=== PATIENT | male | born 1945 | race Caucasian/White ===

== ENCOUNTER 2018-11-29 10:46 | Emergency (ER) | payer MEDICARE ==
[~2018-11-29] VITALS: Ht 185.4 cm; Wt 138.9 kg
[2018-11-29] MEDS ORDERED: SYNT112T2 PO (11:26)
[2018-11-29] MEDS ORDERED: BAYECHW PO (11:26)
[2018-11-29] MEDS ORDERED: BISO5TAB5 PO (11:26)
[2018-11-29] MEDS ORDERED: ATOR1TAB21 PO (11:26)
[2018-11-29] MEDS ORDERED: LISI10TA2 PO (11:26)
[2018-11-29] MEDS ORDERED: TERB250T12 PO (11:26)
[2018-11-29] MEDS ORDERED: FURO40TA2 PO (11:26)
[2018-11-29] MEDS ORDERED: PRESCAP PO (11:26)
[2018-11-29] MEDS ORDERED: MAGN1CAP PO (11:26)
[2018-11-29 13:03] VITALS: BP 152/72
--- NOTE | 2018-11-29 13:19 | REP ---
LEFT KNEE, FIVE VIEWS: Five views of the left knee performed. There is no acute fracture or dislocation. There is mild diffuse joint space narrowing. Superior and inferior patellar spurring is noted. There is probably a very small joint effusion. Vascular calcifications are seen posteriorly. IMPRESSION: Degenerative changes without fracture or dislocation. Electronically Signed by Maxx Avery MD 11/30/2018 09:22 A
== END 2018-11-29 13:05 | disposition home or self-care (01) ==
LOC: M ED 10:46
DX: M25.562 Pain in left knee (principal)

== ENCOUNTER 2019-01-04 11:38 | Emergency (ER) | payer MEDICARE ==
[~2019-01-04] VITALS: Ht 182.9 cm; Wt 138.6 kg
[~2019-01-04 11:38] MED LIST: ATOR1TAB21 PO; BAYECHW PO; BISO5TAB14 PO; FURO40TA2 PO; LISI10TA15 PO; MAGN1CAP PO; PRESCAP PO; SYNT112T2 PO; TERB250T12 PO
--- NOTE | 2019-01-04 12:41 | REP ---
Clinical: Right lower extremity pain and swelling . Technique: Avery scale and color Doppler evaluation using linear high frequency transducer. Findings: Ultrasound examination of the right lower extremity deep venous structures from the common femoral vein to the popliteal vein demonstrates normal compressibility flow and wave patterns in response to respiration and augmentation. There is no evidence for deep venous thrombosis. Impression: No evidence for deep venous thrombosis. Electronically Signed by Paco Arcos MD 01/04/2019 12:33 P
[2019-01-04] MEDS ORDERED: hydroCHLOROthiazide 12.5 MG CAPSULE PO ONE (13:15)
[2019-01-04] MEDS ORDERED: lisinopriL 10 MG TAB PO ONE (13:15)
[2019-01-04] MEDS ORDERED: FUROSEMIDE 40 MG TAB PO ONE (13:15)
[2019-01-04 13:22] VITALS: BP 184/84
[2019-01-04 13:34] LABS: BASO % 0.6 % (0.0-1.0); EOS # 0.2 10^3/uL (0.0-0.50); EOS % 2.2 % (0.0-3.0); HEMATOCRIT 43.9 % (42.0-52.0); HEMOGLOBIN 14.3 g/dl (13.5-17.5); LYMPH # 1.5 10^3/uL (1.5-4.5); LYMPH % 21.8 % (24.0-44.0); MEAN CORPUSCULAR HEMOGLOBIN 30.6 pg (27.0-33.0); MEAN CORPUSCULAR HGB CONC 32.6 g/dl (32.0-36.5); MEAN CORPUSCULAR VOLUME 93.8 fl (80.0-96.0); MONO # 0.6 10^3/uL (0.0-0.8); MONO % 8.6 % (0.0-5.0); NEUTROPHILS # 4.6 10^3/uL (1.8-7.7); NEUTROPHILS % 66.5 % (36.0-66.0); PLATELET COUNT, AUTOMATED 206 10^3/uL (150-450); RED BLOOD COUNT 4.68 10^6/uL (4.30-6.10)
--- NOTE | 2019-01-04 13:41 | REP ---
Clinical: Chest and abdominal pain . Comparison: None . Technique: PA and lateral. Findings: Cardiomegaly is appreciated. Evidence of prior sternotomy noted. The lung edmondson are clear and without acute consolidation, effusion, or pneumothorax. The skeletal structures are intact and normal. Impression: Cardiomegaly. No focal consolidation or effusion. Electronically Signed by Paco Arcos MD 01/04/2019 01:33 P
[2019-01-04 14:00] LABS: BLOOD UREA NITROGEN 17 MG/DL (7-18); CALCIUM LEVEL 8.9 MG/DL (8.8-10.2); CARBON DIOXIDE LEVEL 31 MEQ/L (21-32); CHLORIDE LEVEL 105 MEQ/L (98-107); CK-MB VALUE MASS 2.1 NG/ML (<3.6); CPK CREATINE PHOSPHOKINASE 132 U/L (39-308); CREATININE FOR GFR 1.02 MG/DL (0.70-1.30); GLOMERULAR FILTRATION RATE > 60.0 (>42); GLUCOSE, FASTING 138 MG/DL (70-100); MB/CK RELATIVE INDEX 1.59 (< OR =4); NT-PRO BNP 420 PG/ML (<125); POTASSIUM SERUM 4.9 MEQ/L (3.5-5.1); SODIUM LEVEL 140 MEQ/L (136-145); TROPONIN I < 0.02 NG/ML (< 0.10)
[2019-01-04] MEDS ORDERED: ISOVUE-370 76% 100ML VIAL (Q9967) As Ordered ONE (14:25)
[2019-01-04] MEDS ORDERED: NS 1,000 ML IV ONE (14:30)
[2019-01-04 15:15] VITALS: BP 198/93
--- NOTE | 2019-01-04 15:57 | REP ---
Clinical: Lower extremity swelling and elevated D-dimer levels. Technique: Axial contrast enhanced images from the thoracic inlet to the upper abdomen using 100 ml Isovue 370 intravenous contrast material with coronal and sagittal re-formations. Findings: Satisfactory enhancement of the pulmonary vasculature is achieved and no first or second order filling defects are identified to suggest pulmonary embolus. Subtle emboli to the distal branches of the right upper lobe cannot be excluded although these irregularities may be secondary to subtle motion artifact rather than true emboli. Thoracic aorta is normal caliber without aneurysm or dissection. Atherosclerotic changes to the thoracic aorta and coronary arteries noted. Subtle cardiomegaly suggested. No pericardial effusion. Bilateral lung edmondson are well aerated and clear without acute pulmonary parenchymal consolidation or atelectasis. No nodule or mass lesion. No pleural effusion/reaction. No pneumothorax. No adenopathy. Impression: 1. No pulmonary emboli to the first or second order pulmonary arteries. Subtle irregularities involving the more distal branches of the right upper lobe pulmonary arteries may represent artifact, but small emboli cannot definitively be excluded. Clinical observation may be warranted. 2. Atherosclerotic changes and cardiomegaly. 3. No acute consolidation, or effusion. Electronically Signed by Paco Arcos MD 01/04/2019 03:49 P
== END 2019-01-04 16:31 | disposition home or self-care (01) ==
LOC: M ED 11:38
DX: R60.0 Localized edema (principal); I11.9 Hypertensive heart disease without heart failure; E03.9 Hypothyroidism, unspecified; Z79.82 Long term (current) use of aspirin; Z79.899 Other long term (current) drug therapy; Z86.79 Personal history of other diseases of the circulatory system; Z95.1 Presence of aortocoronary bypass graft
CPT/HCPCS: 71046; 71275; 80048; 81001; 82550; 82553; 83880; 84484; 85025; 85379; 93971; 99284; Q9967

== ENCOUNTER → 2019-02-15 | Outpatient (REF) | payer MEDICARE ==
[~2019-02-15] MED LIST changes: -BISO5TAB14 PO; +BISO5TAB9 PO
[2019-02-15 17:35] LABS: ALBUMIN 3.9 GM/DL (3.2-5.2); ALT/SGPT 38 U/L (12-78); BILIRUBIN,TOTAL 0.5 MG/DL (0.2-1.0); BLOOD UREA NITROGEN 23 MG/DL (7-18); CALCIUM LEVEL 8.6 MG/DL (8.8-10.2); CARBON DIOXIDE LEVEL 32 MEQ/L (21-32); CHLORIDE LEVEL 104 MEQ/L (98-107); CREATININE FOR GFR 0.99 MG/DL (0.70-1.30); GLOMERULAR FILTRATION RATE > 60.0 (>42); GLUCOSE, FASTING 92 MG/DL (70-100); NT-PRO BNP 377 PG/ML (<125); POTASSIUM SERUM 4.5 MEQ/L (3.5-5.1); SODIUM LEVEL 141 MEQ/L (136-145); TOTAL PROTEIN 6.8 GM/DL (6.4-8.2)
== END ==
LOC: M SFHCPLAZ 15:46
PROVIDERS: ATTEND Physician Assistant Medical
DX: E66.01 Morbid (severe) obesity due to excess calories (principal); I50.21 Acute systolic (congestive) heart failure

== ENCOUNTER → 2019-02-22 | Outpatient (CLI) | payer MEDICARE ==
[~2019-02-22] MED LIST changes: +BISO5TAB5 PO; -BISO5TAB9 PO
--- NOTE | 2019-02-22 22:42 | ECHO ---
DATE OF PROCEDURE: 02/22/2019 Date of : 1945 Age 73 REFERRING PHYSICIAN: [facility] PATIENT LOCATION: Outpatient. REASON FOR EXAM: Heart failure. 2D MEASUREMENTS IVS: 1.3 cm LV: 4.5 cm LVPW: 1.3 cm LA: 4.5 cm Aorta: 3.7 cm IVC: 1.1 cm DOPPLER MEASUREMENTS: Peak velocity across the aortic valve: 1.3 m/s Peak velocity across the LVOT: 0.72 m/s Mitral E: 0.49, Mitral A: 0.86 with a ratio of 0.6. 2D COMMENTS: 1. Normal left ventricular size with mildly increased left ventricular wall thickness and the low normal global left ventricular systolic function. The estimated left ventricular systolic ejection fraction is about 55%. 2. Mildly enlarged left atrium. The right atrium and the right ventricle also appeared to be mildly enlarged in limited views. 3. The atrial septum appeared to be normal without evidence of defect or shunt. 4. Borderline enlarged aortic root. 5. A small pericardial effusion was noted, no evidence of cardiac tamponade. 6. Mildly calcified aortic valve with normal leaflet excursion. Normal mitral valve, tricuspid valve. The pulmonic valve and proximal pulmonary artery branches were not well visualized. 7. The inferior vena cava was normal in size, central venous pressure is probably normal. DOPPLER: No significant valvular abnormalities detected. Abnormal relaxation pattern was noted across the mitral valve leaflets as well as the mitral valve annulus consistent with features of grade 1 left ventricular diastolic dysfunction. IMPRESSION 1. Low normal global left ventricular systolic function with mild concentric left ventricular hypertrophy. There are some features of left ventricular diastolic dysfunction, abnormal relaxation. 2. Aortic valve sclerosis without stenosis or aortic regurgitation. 3. A small pericardial effusion was noted, no evidence of cardiac tamponade. 4. The right atrium and the right ventricle appeared to be mildly enlarged in limited views. The right ventricular systolic function could not be assessed, not well visualized. 5. The study was technically limited due to poor acoustic window secondary to body habitus. MTDD
== END ==
LOC: M CARPUL 11:02
PROVIDERS: ATTEND Physician Assistant Medical
DX: I50.21 Acute systolic (congestive) heart failure (principal)

== ENCOUNTER → 2019-03-29 | Outpatient (REF) | payer MEDICARE ==
[~2019-03-29] MED LIST changes: -BISO5TAB5 PO; +BISO5TAB9 PO
[2019-03-29 12:39] LABS: ALBUMIN 4.1 GM/DL (3.2-5.2); ALT/SGPT 43 U/L (12-78); BILIRUBIN,TOTAL 0.6 MG/DL (0.2-1.0); BLOOD UREA NITROGEN 17 MG/DL (7-18); CARBON DIOXIDE LEVEL 29 MEQ/L (21-32); CHLORIDE LEVEL 103 MEQ/L (98-107); CREATININE FOR GFR 0.99 MG/DL (0.70-1.30); GLOMERULAR FILTRATION RATE > 60.0 (>42); GLUCOSE, FASTING 130 MG/DL (70-100); NT-PRO BNP 500 PG/ML (<125); POTASSIUM SERUM 4.3 MEQ/L (3.5-5.1); SODIUM LEVEL 139 MEQ/L (136-145); TOTAL PROTEIN 6.8 GM/DL (6.4-8.2)
== END ==
LOC: M SFHCPLAZ 09:44
PROVIDERS: ATTEND Physician Assistant Medical
DX: I50.21 Acute systolic (congestive) heart failure (principal); E78.00 Pure hypercholesterolemia, unspecified
CPT/HCPCS: 36415; 80053; 83880; G0463

== ENCOUNTER → 2020-01-10 | Outpatient (CLI) | payer MEDICARE ==
[~2020-01-10] MED LIST changes: +BISO5TAB14 PO; -BISO5TAB9 PO
== END ==
LOC: M PLALAB 08:27
DX: N40.1 Benign prostatic hyperplasia with lower urinary tract symptoms (principal)

== ENCOUNTER → 2020-01-10 | Outpatient (CLI) | payer MEDICARE ==
[2020-01-10 11:42] LABS: ALT/SGPT 36 U/L (12-78); BILIRUBIN,TOTAL 0.7 MG/DL (0.2-1.0); BLOOD UREA NITROGEN 29 MG/DL (7-18); C REACTIVE PROTEIN QUANTITATIV 1.16 MG/DL (0.00-0.30); CALCIUM LEVEL 8.9 MG/DL (8.8-10.2); CARBON DIOXIDE LEVEL 31 MEQ/L (21-32); CHLORIDE LEVEL 101 MEQ/L (98-107); CHOLESTEROL LEVEL 143 MG/DL (<200); CHOLESTEROL RISK RATIO 3.575 (<5); CREATININE FOR GFR 1.09 MG/DL (0.70-1.30); FERRITIN 151 NG/ML (26-388); FREE T4 1.01 NG/DL (0.76-1.46); GLOMERULAR FILTRATION RATE > 60.0 (>42); GLUCOSE, FASTING 120 MG/DL (70-100); HDL CHOLESTEROL 40 MG/DL (>40); IRON (FE) 86 UG/DL (65-175); LDL CHOLESTEROL 62 MG/DL (<100); NON-HDL-C 103 MG/DL; PERCENT SATURATION 30.9 % (19.7-50.0); POTASSIUM SERUM 4.5 MEQ/L (3.5-5.1); SODIUM LEVEL 139 MEQ/L (136-145); TOTAL IRON BINDING CAPACITY 278 UG/DL (250-450); TOTAL PROTEIN 7.1 GM/DL (6.4-8.2); TRIGLYCERIDES LEVEL 203 MG/DL (<150)
[2020-01-10 11:44] LABS: PTH INTACT 51.3 PG/ML (18.5-88.0); TOTAL 25(OH) VITAMIN D 19.2 NG/ML (30.0-100.0); VITAMIN B12 LEVEL 1010 PG/ML (247-911)
== END ==
LOC: M PLALAB 08:31
DX: Z01.818 Encounter for other preprocedural examination (principal); R53.83 Other fatigue; Z79.899 Other long term (current) drug therapy

== ENCOUNTER → 2020-03-06 | Outpatient (CLI) | payer MEDICARE ==
[~2020-03-06] MED LIST changes: +D31000TA2 PO; +LISI10TA4 PO
== END ==
LOC: M LABSMTC 11:44
PROVIDERS: ATTEND Anesthesiology
DX: Z01.812 Encounter for preprocedural laboratory examination (principal); Z11.59 Encounter for screening for other viral diseases
CPT/HCPCS: C9803; U0003

== ENCOUNTER 2020-03-11 12:40 | Day surgery (SDC) | payer MEDICARE ==
[~2020-03-11] VITALS: Ht 180.3 cm; Wt 135.2 kg
[~2020-03-11 12:40] MED LIST changes: +LIDOCAINE 2% 100MG/5ML SDV (FOR ANES.) As Ordered ONE; +propofoL 200 MG/20 ML VIAL As Ordered ONE
[2020-03-11] MEDS ORDERED: NS 1,000 ML IV ONE (13:15)
[2020-03-11] MEDS ORDERED: fentaNYL 100 MCG/2 ML INJECTION (J3010) As Ordered ONE (14:28)
[2020-03-11 15:18] VITALS: BP 168/72
--- NOTE | 2020-03-20 11:37 | ROOR ---
Patient Name: Warren Harkins Procedure Date: 03/11/2020 11:13 AM Date of : 1945 Age: 74 Room: [facility] Gender: Male Note Status: Finalized Procedure: Total Colonoscopy to Cecum Indications: Screening for colorectal malignant neoplasm Providers: Solomon Foster MD Referring MD: Nathalia DALLAS Requesting Provider: Medicines: Monitored Anesthesia Care Complications: No immediate complications. Procedure: Pre-Anesthesia Assessment: - The heart rate, respiratory rate, oxygen saturations, blood pressure, adequacy of pulmonary ventilation, and response to care were monitored throughout the procedure. The Colonoscope was introduced through the anus and advanced to the cecum, identified by appendiceal orifice and ileocecal valve. The colonoscopy was performed without difficulty. The patient tolerated the procedure well. The quality of the bowel preparation was good. Findings: The perianal and digital rectal examinations were normal. Non-bleeding internal hemorrhoids were found during retroflexion. The hemorrhoids were small and Grade I (internal hemorrhoids that do not prolapse). Scattered small-mouthed diverticula were found in the recto-sigmoid colon, sigmoid colon and descending colon. The exam was otherwise without abnormality on direct and retroflexion views. Impression: - Non-bleeding internal hemorrhoids. - Diverticulosis in the recto-sigmoid colon, in the sigmoid colon and in the descending colon. - The examination was otherwise normal on direct and retroflexion views. - No specimens collected. - The exam was otherwise normal to the cecum. Recommendation: - Patient has a contact number available for emergencies. The signs and symptoms of potential delayed complications were discussed with the patient. Return to normal activities tomorrow. Written discharge instructions were provided to the patient. - High fiber diet. - Discharge patient to home. - Continue present medications. - Repeat colonoscopy is not recommended due to current age (66 years or older) for screening purposes. - Return to referring physician. - The findings and recommendations were discussed with the patient. Solomon Foster MD Solomon Foster MD 03/11/2020 2:39:58 PM Electronically signed by Solomon Foster MD Number of Addenda: 0 Note Initiated On: 03/11/2020 11:13 AM Estimated Blood Loss: Estimated blood loss: none.
--- NOTE | 2020-03-20 11:37 | ROOR ---
Patient Name: Warren Harkins Procedure Date: 03/11/2020 11:31 AM Date of : 1945 Age: 74 Room: [facility] Gender: Male Note Status: Finalized Procedure: Upper Endoscopy + Biopsies Indications: Preoperative assessment for bariatric surgery to treat morbid obesity Providers: Solomon Foster MD Referring MD: Nathalia DALLAS Requesting Provider: Medicines: Monitored Anesthesia Care Complications: No immediate complications. Procedure: Pre-Anesthesia Assessment: - The heart rate, respiratory rate, oxygen saturations, blood pressure, adequacy of pulmonary ventilation, and response to care were monitored throughout the procedure. The Endoscope was introduced through the mouth, and advanced to the second part of duodenum. The upper GI endoscopy was accomplished without difficulty. The patient tolerated the procedure well. Findings: The Z-line was irregular and was found 40 cm from the incisors. Multiple biopsies were obtained with cold forceps for evaluation to rule out Polanco's Esophagus randomly at the gastroesophageal junction. Multiple localized, diminutive non-bleeding erosions were found in the gastric antrum. There were no stigmata of recent bleeding. Biopsies were taken with a cold forceps for Helicobacter pylori testing. The exam of the duodenum was otherwise normal. Impression: - Z-line irregular, 40 cm from the incisors. - Non-bleeding erosive gastropathy. Biopsied. - Multiple biopsies were obtained at the gastroesophageal junction. - The examination was otherwise normal. Recommendation: - Patient has a contact number available for emergencies. The signs and symptoms of potential delayed complications were discussed with the patient. Return to normal activities tomorrow. Written discharge instructions were provided to the patient. - High fiber diet. - Discharge patient to home. - Follow an antireflux regimen. - Continue present medications. - Await pathology results. - Telephone GI clinic for pathology results in 1 week. - Return to referring physician. - The findings and recommendations were discussed with the patient. Solomon Foster MD Solomon Foster MD 03/11/2020 2:21:38 PM Number of Addenda: 0 Note Initiated On: 03/11/2020 11:31 AM Estimated Blood Loss: Estimated blood loss: none.
== END 2020-03-11 15:21 | disposition home or self-care (01) ==
LOC: M OPP 12:40
PROVIDERS: ATTEND Internal Medicine Gastroenterology
DX: Z01.818 Encounter for other preprocedural examination (principal); Z12.11 Encounter for screening for malignant neoplasm of colon; K64.0 First degree hemorrhoids; K57.30 Diverticulosis of large intestine without perforation or abscess without bleeding; K22.8 Other specified diseases of esophagus; K31.89 Other diseases of stomach and duodenum; E66.01 Morbid (severe) obesity due to excess calories; I11.0 Hypertensive heart disease with heart failure; I50.9 Heart failure, unspecified; Z79.82 Long term (current) use of aspirin; Z79.899 Other long term (current) drug therapy; Z85.51 Personal history of malignant neoplasm of bladder
CPT/HCPCS: 43239; 88305; G0121; J3010

== ENCOUNTER → 2020-12-11 | Outpatient (CLI) | payer MEDICARE ==
[~2020-12-11] MED LIST changes: -LIDOCAINE 2% 100MG/5ML SDV (FOR ANES.) As Ordered ONE; +LISI10TA22 PO; -LISI10TA4 PO; -propofoL 200 MG/20 ML VIAL As Ordered ONE
[2020-12-11 11:08] LABS: HEMATOCRIT 42.5 % (42.0-52.0); HEMOGLOBIN 13.3 g/dl (13.5-17.5); MEAN CORPUSCULAR HEMOGLOBIN 28.2 pg (27.0-33.0); MEAN CORPUSCULAR HGB CONC 31.3 g/dl (32.0-36.5); MEAN CORPUSCULAR VOLUME 90.2 fl (80.0-96.0); PLATELET COUNT, AUTOMATED 216 10^3/uL (150-450); RED BLOOD COUNT 4.71 10^6/uL (4.30-6.10); WHITE BLOOD COUNT 7.2 10^3/uL (4.0-10.0)
[2020-12-11 11:32] LABS: HEMOGLOBIN A1c 5.3 %
[2020-12-11 11:38] LABS: ALBUMIN 3.6 GM/DL (3.2-5.2); ALT/SGPT 21 U/L (12-78); BILIRUBIN,TOTAL 0.7 MG/DL (0.2-1.0); BLOOD UREA NITROGEN 27 MG/DL (7-18); C REACTIVE PROTEIN QUANTITATIV 0.83 MG/DL (0.00-0.30); CALCIUM LEVEL 8.9 MG/DL (8.8-10.2); CARBON DIOXIDE LEVEL 34 MEQ/L (21-32); CHLORIDE LEVEL 101 MEQ/L (98-107); CHOLESTEROL LEVEL 138 MG/DL (<200); CREATININE FOR GFR 0.99 MG/DL (0.70-1.30); FERRITIN 157 NG/ML (26-388); GLOMERULAR FILTRATION RATE > 60.0 (>42); GLUCOSE, FASTING 94 MG/DL (70-100); HDL CHOLESTEROL 50 MG/DL (>40); IRON (FE) 79 UG/DL (65-175); LDL CHOLESTEROL 69 MG/DL (<100); NON-HDL-C 88 MG/DL; PERCENT SATURATION 30.6 % (19.7-50.0); POTASSIUM SERUM 4.1 MEQ/L (3.5-5.1); SODIUM LEVEL 140 MEQ/L (136-145); TOTAL IRON BINDING CAPACITY 258 UG/DL (250-450); TOTAL PROTEIN 6.8 GM/DL (6.4-8.2); TRIGLYCERIDES LEVEL 93 MG/DL (<150)
[2020-12-11 11:42] LABS: PTH INTACT 42.7 PG/ML (18.5-88.0); TOTAL 25(OH) VITAMIN D 103.6 NG/ML (30.0-100.0)
[2020-12-11 11:43] LABS: VITAMIN B12 LEVEL 992 PG/ML
[2020-12-11 13:11] LABS: FOLATE > 24.0 NG/ML
== END ==
LOC: M PLALAB 08:34
DX: K91.2 Postsurgical malabsorption, not elsewhere classified (principal); E78.5 Hyperlipidemia, unspecified; R53.83 Other fatigue; Z79.899 Other long term (current) drug therapy; Z98.84 Bariatric surgery status

== ENCOUNTER → 2020-12-11 | Outpatient (REF) | payer MEDICARE ==
[2020-12-11 11:09] LABS: BASO # 0.1 10^3/uL (0.0-0.2); BASO % 0.8 % (0.0-1.0); EOS # 0.2 10^3/uL (0.0-0.5); EOS % 2.9 % (0.0-3.0); HEMATOCRIT 41.6 % (42.0-52.0); HEMOGLOBIN 13.4 g/dl (13.5-17.5); LYMPH # 1.9 10^3/uL (1.5-5.0); LYMPH % 26.3 % (24.0-44.0); MEAN CORPUSCULAR HEMOGLOBIN 29.3 pg (27.0-33.0); MEAN CORPUSCULAR HGB CONC 32.2 g/dl (32.0-36.5); MONO # 0.6 10^3/uL (0.0-0.8); MONO % 7.8 % (2.0-8.0); NEUTROPHILS # 4.5 10^3/uL (1.5-8.5); NEUTROPHILS % 61.9 % (36.0-66.0); PLATELET COUNT, AUTOMATED 229 10^3/uL (150-450); RED BLOOD COUNT 4.57 10^6/uL (4.30-6.10); WHITE BLOOD COUNT 7.3 10^3/uL (4.0-10.0)
[2020-12-11 11:33] LABS: HEMOGLOBIN A1c 5.3 %
[2020-12-11 11:45] LABS: ALBUMIN 3.7 GM/DL (3.2-5.2); ALT/SGPT 20 U/L (12-78); BILIRUBIN,TOTAL 0.7 MG/DL (0.2-1.0); BLOOD UREA NITROGEN 26 MG/DL (7-18); CALCIUM LEVEL 9.1 MG/DL (8.8-10.2); CARBON DIOXIDE LEVEL 35 MEQ/L (21-32); CHLORIDE LEVEL 101 MEQ/L (98-107); CHOLESTEROL LEVEL 144 MG/DL (<200); CHOLESTEROL RISK RATIO 2.823 (<5); CREATININE FOR GFR 0.96 MG/DL (0.70-1.30); FREE T4 1.06 NG/DL (0.76-1.46); GLOMERULAR FILTRATION RATE > 60.0 (>42); GLUCOSE, FASTING 97 MG/DL (70-100); HDL CHOLESTEROL 51 MG/DL (>40); LDL CHOLESTEROL 74 MG/DL (<100); NON-HDL-C 93 MG/DL; NT-PRO BNP 477 PG/ML (<450); POTASSIUM SERUM 4.1 MEQ/L (3.5-5.1); SODIUM LEVEL 139 MEQ/L (136-145); TOTAL PROTEIN 6.9 GM/DL (6.4-8.2); TRIGLYCERIDES LEVEL 94 MG/DL (<150)
== END ==
LOC: M SFHCPLAZ 08:33
PROVIDERS: ATTEND Physician Assistant Medical
DX: I50.21 Acute systolic (congestive) heart failure (principal); I11.0 Hypertensive heart disease with heart failure; R73.01 Impaired fasting glucose; E03.9 Hypothyroidism, unspecified; E78.00 Pure hypercholesterolemia, unspecified

== ENCOUNTER → 2021-10-27 | Outpatient (REF) | payer MEDICARE ==
[~2021-10-27] MED LIST changes: -D31000TA2 PO; -LISI10TA15 PO; +LISI10TA24 PO; -TERB250T12 PO; +TERB250T91 PO; +VITA100093 PO
== END ==
LOC: M LAB REF 15:37
PROVIDERS: ATTEND Physician Assistant
DX: L02.213 Cutaneous abscess of chest wall (principal)

== ENCOUNTER 2022-04-11 12:22 | Inpatient (IN) | payer MEDICARE ==
[~2022-04-11] VITALS: Ht 180.3 cm; Wt 116.9 kg
[2022-04-11 13:38] LABS: HEMATOCRIT 43.3 % (42.0-52.0); MEAN CORPUSCULAR HGB CONC 32.3 g/dl (32.0-36.5); MEAN CORPUSCULAR VOLUME 95.8 fl (80.0-96.0); PLATELET COUNT, AUTOMATED 261 10^3/uL (150-450); RED BLOOD COUNT 4.52 10^6/uL (4.30-6.10); WHITE BLOOD COUNT 17.2 10^3/uL (4.0-10.0)
[2022-04-11 13:57] LABS: ATYPICAL LYMPH 1 % (0-5); EOSINOPHILS 1 % (0-3); LYMPHOCYTES 9 % (16-44); MONOCYTES 14 % (0-5); NEUTROPHILS 60 % (28-66)
[2022-04-11 13:58] LABS: PLATELET ESTIMATE NORMAL (NORMAL)
[2022-04-11 13:59] LABS: POLYCHROMASIA 1+
[2022-04-11 14:00] LABS: ERYTHROCYTE SEDIMENTATION RATE 82 mm/hr (0-20)
[2022-04-11 14:34] LABS: BILIRUBIN,DIRECT 0.3 MG/DL (0.0-0.2); BILIRUBIN,TOTAL 0.7 MG/DL (0.2-1.0); C REACTIVE PROTEIN QUANTITATIV 45.1 MG/DL (0.00-0.30); CALCIUM LEVEL 8.8 MG/DL (8.8-10.2); CREATININE FOR GFR 1.74 MG/DL (0.70-1.30); GLOMERULAR FILTRATION RATE 40.7 (>42); POTASSIUM SERUM 4.3 MEQ/L (3.5-5.1); TOTAL PROTEIN 6.8 GM/DL (6.4-8.2)
[2022-04-11] MEDS ORDERED: VANCOMYCIN HCL 2,000 MG in D5W 500 ML IV ONE (14:40)
[2022-04-11] MEDS ORDERED: VANCOMYCIN HCL 1,000 MG, VIAL MATE ADAPTER 1 EACH in NS 250 ML IV ONE ×6 (14:45)
[2022-04-11] MEDS ORDERED: MAGN400C2 PO (15:12)
[2022-04-11] MEDS ORDERED: BARI1CAP PO (15:12)
[2022-04-11] MEDS ORDERED: ASPI-161 PO (15:12)
[2022-04-11] MEDS ORDERED: HOME MED LIST COMPLETE! XX SCH (15:15)
[2022-04-11] MEDS ORDERED: NS 3,410 ML in IV 1 EA IV ONE (17:00)
[2022-04-11 20:30] VITALS: BP 98/56
[2022-04-11] MEDS: ASPIRIN 81MG ENTERIC TABLET PO SCH (21:55)
[2022-04-11] MEDS: OCUVITE 1 TAB PO SCH (21:55)
[2022-04-11] MEDS: ATORVASTATIN 20 MG TAB PO SCH (21:55)
[2022-04-11] MEDS: NS 1,000 ML IV SCH (21:56)
[2022-04-11] MEDS: HEPARIN SOD (PORCINE) 5000UNITS/ML 1ML VIAL/SYRINGE SC SCH (21:56)
[2022-04-12] MEDS: NS 1,000 ML IV SCH (04:19)
[2022-04-12] MEDS: LEVOTHYROXINE 112MCG TABLET (0.112MG) PO SCH (05:21)
[2022-04-12] MEDS: HEPARIN SOD (PORCINE) 5000UNITS/ML 1ML VIAL/SYRINGE SC SCH ×3 (05:22→20:58)
[2022-04-12] MEDS: VANCOMYCIN HCL 1,000 MG, VIAL MATE ADAPTER 1 EACH in NS 250 ML IV SCH ×2 (05:27→18:02)
[2022-04-12 06:00] VITALS: BP 108/69
[2022-04-12 07:39] LABS: HEMATOCRIT 36.3 % (42.0-52.0); HEMOGLOBIN 12.1 g/dl (13.5-17.5); MEAN CORPUSCULAR HEMOGLOBIN 31.8 pg (27.0-33.0); MEAN CORPUSCULAR HGB CONC 33.3 g/dl (32.0-36.5); MEAN CORPUSCULAR VOLUME 95.5 fl (80.0-96.0); PLATELET COUNT, AUTOMATED 231 10^3/uL (150-450)
[2022-04-12] MEDS ORDERED: LR 1,000 ML IV ONE (08:00)
[2022-04-12 08:08] LABS: ATYPICAL LYMPH 5 % (0-5); BASOPHILS 1 % (0-1); LYMPHOCYTES 8 % (16-44); MONOCYTES 10 % (0-5); NEUTROPHILS 64 % (28-66)
[2022-04-12 08:10] LABS: PLATELET ESTIMATE NORMAL (NORMAL)
[2022-04-12 08:21] LABS: BLOOD UREA NITROGEN 25 MG/DL (7-18); CALCIUM LEVEL 7.6 MG/DL (8.8-10.2); CARBON DIOXIDE LEVEL 25 MEQ/L (21-32); CHLORIDE LEVEL 105 MEQ/L (98-107); CREATININE FOR GFR 1.06 MG/DL (0.70-1.30); GLOMERULAR FILTRATION RATE > 60.0 (>42); GLUCOSE, FASTING 118 MG/DL (70-100); POTASSIUM SERUM 4.1 MEQ/L (3.5-5.1); SODIUM LEVEL 136 MEQ/L (136-145)
[2022-04-12] MEDS ORDERED: PREVNAR-20 VACCINE 0.5ML SYRINGE IM.IMMUN ONE (09:00)
[2022-04-12] MEDS ORDERED: FLUBLOK(EGG FREE)(QUAD)INFLUENZA VACC 0.5ML SYRINGE 18YRS & OLDER IM.IMMUN ONE (09:00)
[2022-04-12] MEDS: bisoproloL fumarate 5 MG TAB PO SCH (09:40)
[2022-04-12] MEDS: VITAMIN D 1,000 INTERNATIONAL UNITS TABLET PO SCH (09:41)
[2022-04-12] MEDS: OCUVITE 1 TAB PO SCH ×2 (09:41→20:55)
[2022-04-12 14:00] VITALS: BP 122/75
[2022-04-12] MEDS: LR 1,000 ML IV SCH ×2 (16:43→21:48)
[2022-04-12] MEDS: ATORVASTATIN 20 MG TAB PO SCH (20:54)
[2022-04-12] MEDS: ASPIRIN 81MG ENTERIC TABLET PO SCH (20:55)
[2022-04-12 21:40] VITALS: BP 115/64
[2022-04-13] MEDS: LR 1,000 ML IV SCH (03:52)
[2022-04-13] MEDS: HEPARIN SOD (PORCINE) 5000UNITS/ML 1ML VIAL/SYRINGE SC SCH ×3 (05:45→21:19)
[2022-04-13] MEDS: VANCOMYCIN HCL 1,000 MG, VIAL MATE ADAPTER 1 EACH in NS 250 ML IV SCH ×2 (05:45→17:38)
[2022-04-13] MEDS: LEVOTHYROXINE 112MCG TABLET (0.112MG) PO SCH (05:45)
[2022-04-13 05:56] VITALS: BP 110/66
[2022-04-13 05:58] LABS: BASO % 0.4 % (0.0-1.0); EOS # 0.2 10^3/uL (0.0-0.5); EOS % 1.7 % (0.0-3.0); HEMATOCRIT 36.4 % (42.0-52.0); HEMOGLOBIN 11.5 g/dl (13.5-17.5); LYMPH % 8.8 % (24.0-44.0); MEAN CORPUSCULAR HEMOGLOBIN 30.5 pg (27.0-33.0); MEAN CORPUSCULAR HGB CONC 31.6 g/dl (32.0-36.5); MEAN CORPUSCULAR VOLUME 96.6 fl (80.0-96.0); MONO # 0.7 10^3/uL (0.0-0.8); MONO % 5.8 % (2.0-8.0); NEUTROPHILS # 9.2 10^3/uL (1.5-8.5); NEUTROPHILS % 81.9 % (36.0-66.0); PLATELET COUNT, AUTOMATED 238 10^3/uL (150-450); RED BLOOD COUNT 3.77 10^6/uL (4.30-6.10); WHITE BLOOD COUNT 11.3 10^3/uL (4.0-10.0)
[2022-04-13 06:44] LABS: BLOOD UREA NITROGEN 21 MG/DL (7-18); CALCIUM LEVEL 7.7 MG/DL (8.8-10.2); CARBON DIOXIDE LEVEL 25 MEQ/L (21-32); CHLORIDE LEVEL 106 MEQ/L (98-107); CREATININE FOR GFR 0.87 MG/DL (0.70-1.30); GLOMERULAR FILTRATION RATE > 60.0 (>42); GLUCOSE, FASTING 114 MG/DL (70-100); POTASSIUM SERUM 4.1 MEQ/L (3.5-5.1); SODIUM LEVEL 138 MEQ/L (136-145); VANCOMYCIN LEVEL TROUGH 10.7 UG/ML (10.0-20.0)
[2022-04-13] MEDS: bisoproloL fumarate 5 MG TAB PO SCH (09:04)
[2022-04-13] MEDS: OCUVITE 1 TAB PO SCH ×2 (09:04→21:19)
[2022-04-13] MEDS: VITAMIN D 1,000 INTERNATIONAL UNITS TABLET PO SCH (09:04)
[2022-04-13] MEDS: FUROSEMIDE 20 MG TAB PO SCH ×2 (10:37→17:38)
[2022-04-13 14:00] VITALS: BP 94/60
[2022-04-13 15:52] VITALS: BP 101/64
[2022-04-13] MEDS: ASPIRIN 81MG ENTERIC TABLET PO SCH (21:19)
[2022-04-13] MEDS: ATORVASTATIN 20 MG TAB PO SCH (21:19)
[2022-04-13 22:00] VITALS: BP 102/66
[2022-04-14] MEDS: VANCOMYCIN HCL 1,000 MG, VIAL MATE ADAPTER 1 EACH in NS 250 ML IV SCH (05:01)
[2022-04-14] MEDS: LEVOTHYROXINE 112MCG TABLET (0.112MG) PO SCH (05:01)
[2022-04-14] MEDS: HEPARIN SOD (PORCINE) 5000UNITS/ML 1ML VIAL/SYRINGE SC SCH ×2 (05:02→14:25)
[2022-04-14 06:00] VITALS: BP 147/86
[2022-04-14 06:41] LABS: BASO # 0.1 10^3/uL (0.0-0.2); BASO % 0.6 % (0.0-1.0); EOS # 0.2 10^3/uL (0.0-0.5); EOS % 1.9 % (0.0-3.0); HEMATOCRIT 36.9 % (42.0-52.0); HEMOGLOBIN 11.8 g/dl (13.5-17.5); LYMPH # 1.1 10^3/uL (1.5-5.0); LYMPH % 9.8 % (24.0-44.0); MEAN CORPUSCULAR HEMOGLOBIN 30.9 pg (27.0-33.0); MEAN CORPUSCULAR VOLUME 96.6 fl (80.0-96.0); MONO # 0.8 10^3/uL (0.0-0.8); MONO % 7.2 % (2.0-8.0); NEUTROPHILS # 8.7 10^3/uL (1.5-8.5); NEUTROPHILS % 78.7 % (36.0-66.0); PLATELET COUNT, AUTOMATED 258 10^3/uL (150-450); RED BLOOD COUNT 3.82 10^6/uL (4.30-6.10)
[2022-04-14 07:35] LABS: BLOOD UREA NITROGEN 16 MG/DL (7-18); CARBON DIOXIDE LEVEL 28 MEQ/L (21-32); CHLORIDE LEVEL 105 MEQ/L (98-107); CREATININE FOR GFR 0.82 MG/DL (0.70-1.30); GLOMERULAR FILTRATION RATE > 60.0 (>42); GLUCOSE, FASTING 126 MG/DL (70-100); POTASSIUM SERUM 3.7 MEQ/L (3.5-5.1); SODIUM LEVEL 138 MEQ/L (136-145)
[2022-04-14] MEDS ORDERED: DOXYCYCLINE HYCLATE 100MG TABLET PO SCH (09:00)
[2022-04-14] MEDS: VITAMIN D 1,000 INTERNATIONAL UNITS TABLET PO SCH (09:00)
[2022-04-14 10:28] VITALS: BP 120/68
[2022-04-14] MEDS: bisoproloL fumarate 5 MG TAB PO SCH (10:28)
[2022-04-14] MEDS: FUROSEMIDE 20 MG TAB PO SCH ×2 (10:28→16:19)
[2022-04-14] MEDS: ACETAMINOPHEN TAB 650MG DOSE (2X325MG) PO PRN ×2 (10:29→16:20)
[2022-04-14] MEDS: OCUVITE 1 TAB PO SCH (10:30)
[2022-04-14] MEDS ORDERED: DOXY100T PO (10:31)
[2022-04-14] MEDS ORDERED: FURO20TA2 PO (10:31)
[2022-04-14] MEDS ORDERED: FURO40TA2 PO (13:36)
[2022-04-14 14:00] VITALS: BP 102/69
== END 2022-04-14 17:00 | disposition home health service (06) | DRG 872 ==
LOC: M ED 12:22 → INTOOBSV 16:22 → M ED INP 16:22 → M MS5PR 20:30 → OBSVTOIN 04-12 10:07
PROVIDERS: ADMIT Internal Medicine; ATTEND Internal Medicine
PROC: B246ZZ4 Ultrasonography of Right and Left Heart, Transesophageal (ICD-10-PCS; principal; 2022-04-12)
DX: A41.01 Sepsis due to Methicillin susceptible Staphylococcus aureus (principal); N17.9 Acute kidney failure, unspecified; L02.212 Cutaneous abscess of back [any part, except buttock and flank]; I25.2 Old myocardial infarction; Z79.82 Long term (current) use of aspirin; E78.5 Hyperlipidemia, unspecified; E03.9 Hypothyroidism, unspecified; I25.10 Atherosclerotic heart disease of native coronary artery without angina pectoris; I10 Essential (primary) hypertension; Z95.1 Presence of aortocoronary bypass graft; Z85.51 Personal history of malignant neoplasm of bladder; Z92.21 Personal history of antineoplastic chemotherapy; Z79.899 Other long term (current) drug therapy; Z87.891 Personal history of nicotine dependence; Z89.611 Acquired absence of right leg above knee

== ENCOUNTER → 2022-05-12 | Outpatient (REF) | payer MEDICARE ==
[~2022-05-12] MED LIST changes: +ASPI-161 PO; +BARI1CAP PO; +DOXY100T PO; +FURO20TA2 PO; +MAGN400C2 PO
== END ==
LOC: M LAB REF 14:13
PROVIDERS: ATTEND Internal Medicine
DX: G60.9 Hereditary and idiopathic neuropathy, unspecified (principal)

== ENCOUNTER → 2022-05-13 | Outpatient (CLI) | payer MEDICARE | LOC: M EKG 08:50 | PROVIDERS: ATTEND Internal Medicine | DX: R00.0 Tachycardia, unspecified (principal) ==

== ENCOUNTER → 2023-02-03 | Outpatient (CLI) | payer MEDICARE | LOC: M PLAIMG 12:54 | PROVIDERS: ATTEND Physician Assistant | DX: M16.11 Unilateral primary osteoarthritis, right hip (principal) ==

== ENCOUNTER → 2023-05-19 | Outpatient (CLI) | payer MEDICARE | LOC: M SLEEP 20:00 | PROVIDERS: ATTEND Nurse Practitioner Family | DX: G47.33 Obstructive sleep apnea (adult) (pediatric) (principal) ==

== ENCOUNTER → 2023-09-13 | Outpatient (CLI) | payer MEDICARE ==
[~2023-09-13] MED LIST changes: -ASPI-161 PO; +ASPI-615 PO
== END ==
LOC: M SLEEP 20:00
PROVIDERS: ATTEND Nurse Practitioner Family
DX: G47.33 Obstructive sleep apnea (adult) (pediatric) (principal)

== ENCOUNTER → 2024-06-13 | Outpatient (REF) | payer MEDICARE ==
[2024-06-13 13:51] LABS: PHOSPHORUS LEVEL 2.9 MG/DL (2.4-5.1); TOTAL 25(OH) VITAMIN D 56.2 NG/ML (20.0-100.0); VITAMIN B12 LEVEL 905 PG/ML (211-911)
[2024-06-13 13:53] LABS: FERRITIN 78.5 NG/ML (10.5-307.3); IRON (FE) 118 UG/DL (65-175); PERCENT SATURATION 36.4 % (19.7-50.0); TOTAL IRON BINDING CAPACITY 324 UG/DL (250-425)
[2024-06-13 14:16] LABS: FOLATE > 24.0 NG/ML (>5.4)
[2024-06-16 20:21] LABS: VITAMIN A, RETINOL LEVEL 82 mcg/dL (38-98)
[2024-06-17 17:53] LABS: VITAMIN B1 LEVEL WHOLE BLOOD 222 nmol/L (78-185)
== END ==
LOC: M LAB REF 12:20
PROVIDERS: ATTEND Internal Medicine
DX: Z98.84 Bariatric surgery status (principal); Z79.899 Other long term (current) drug therapy

== ENCOUNTER → 2024-10-16 | Outpatient (CLI) | payer MEDICARE | LOC: M RAD 16:12 | PROVIDERS: ATTEND Physician Assistant | DX: M50.30 Other cervical disc degeneration, unspecified cervical region (principal); M47.22 Other spondylosis with radiculopathy, cervical region ==

== ENCOUNTER 2025-01-11 10:16 | Emergency (ER) | payer MEDICARE ==
[~2025-01-11] VITALS: Ht 182.9 cm; Wt 129.8 kg
[2025-01-11] MEDS ORDERED: B-12100011 SL (10:40)
[2025-01-11] MEDS ORDERED: RA M500C PO (10:40)
[2025-01-11] MEDS ORDERED: LEVO112T2 (10:40)
[2025-01-11] MEDS ORDERED: GABA-1171 (10:40)
[2025-01-11] MEDS ORDERED: ISOS1TAB35 (10:40)
[2025-01-11] MEDS ORDERED: LEXA5TAB13 (10:40)
[2025-01-11] MEDS ORDERED: METO200T15 (10:40)
[2025-01-11] MEDS ORDERED: XARE20TA (10:40)
[2025-01-11 11:36] LABS: BASO # 0.0 10^3/uL (0.0-0.2); BASO % 0.7 % (0.0-1.0); EOS # 0.2 10^3/uL (0.0-0.5); EOS % 2.9 % (0.0-3.0); LYMPH # 1.7 10^3/uL (1.5-5.0); LYMPH % 29.0 % (24.0-44.0); MONO # 0.7 10^3/uL (0.0-0.8); MONO % 12.2 % (2.0-8.0); NEUTROPHILS # 3.2 10^3/uL (1.5-8.5); NEUTROPHILS % 54.9 % (36.0-66.0); PLATELET COUNT, AUTOMATED 204 10^3/uL (150-450)
[2025-01-11 12:09] LABS: CALCIUM LEVEL 9.0 MG/DL (8.3-10.6); CARBON DIOXIDE LEVEL 32.0 MMOL/L (20-31); CHLORIDE LEVEL 100.0 MMOL/L (98-107); CREATININE FOR GFR 1.08 MG/DL (0.70-1.30); GLOMERULAR FILTRATION RATE 69.8 (>42); POTASSIUM SERUM 5.0 MMOL/L (3.5-5.1); SODIUM LEVEL 141.0 MMOL/L (136-145)
[2025-01-11] MEDS ORDERED: ISOVUE-370 76% 100 ML VIAL As Ordered ONE (13:09)
[2025-01-11 14:48] VITALS: BP 188/92; TEMP 96.6; O2SAT 98
== END 2025-01-11 15:22 | disposition home or self-care (01) ==
LOC: M ED 10:16
DX: D17.23 Benign lipomatous neoplasm of skin and subcutaneous tissue of right leg (principal); K21.9 Gastro-esophageal reflux disease without esophagitis; E03.9 Hypothyroidism, unspecified; F10.10 Alcohol abuse, uncomplicated; Z86.79 Personal history of other diseases of the circulatory system; Z96.651 Presence of right artificial knee joint; Z79.02 Long term (current) use of antithrombotics/antiplatelets; Z79.82 Long term (current) use of aspirin; Z79.899 Other long term (current) drug therapy
CPT/HCPCS: 36415; 73701; 80047; 80048; 85025; 93971; 99284; Q9967

== ENCOUNTER → 2025-04-23 | Outpatient (CLI) | payer MEDICARE ==
[~2025-04-23] MED LIST changes: +B-12100011 SL; +GABA-1171; +ISOS1TAB35; +LEVO112T2; +LEXA5TAB13; +METO200T15; +RA M500C PO; +XARE20TA
== END ==
LOC: M RAD 07:28
PROVIDERS: ATTEND Internal Medicine
DX: M54.59 Other low back pain (principal)